=== PATIENT | male | born 1940 | race Caucasian/White ===

== ENCOUNTER 2022-09-16 06:16 | Day surgery (SDC) | payer MEDICARE ==
[2022-09-16] VITALS (11 sets, daily range): BP systolic 133–159; BP diastolic 55–90
[~2022-09-16] VITALS: Ht 177.8 cm; Wt 94.5 kg
[~2022-09-16 06:16] MED LIST: ASCO500C14 PO; ATEN50TA8 PO; BENA1TAB88 PO; CHOL100046 PO; CLOP-32 PO; FAMO20TA8 PO; RIVA20TA PO; zinc PO
[2022-09-16] MEDS ORDERED: normal saline 1000ml 1,000 ML IV PRN (06:40)
[2022-09-16] MEDS ORDERED: CLOP75TA34 PO (07:03)
[2022-09-16] MEDS ORDERED: BENA1TAB88 PO (07:24)
[2022-09-16 07:42] LABS: EOSINOPHILS # (AUTO) 0.2 X10'3 (0-0.9); MEAN CORPUSCULAR HEMOGLOBIN 31.9 PG (27.0-31.0); MONOCYTES # (AUTO) 0.4 X10'3 (0-0.9)
[2022-09-16 07:43] LABS: BASOPHILS % (AUTO) 0.2 % (0-1); EOSINOPHILS % (AUTO) 1.9 % (0-6); HEMATOCRIT 36.2 % (42.0-52.0); HEMOGLOBIN 12.3 g/dl (14.0-17.9); LYMPHOCYTES # (AUTO) 5.5 X10'3 (1.1-4.8); LYMPHOCYTES % (AUTO) 61.2 % (21-51); MEAN CORPUSCULAR VOLUME 93.9 FL (78-98); MONOCYTES % (AUTO) 4.9 % (2-12); NEUTROPHILS # (AUTO) 2.9 X10'3 (1.8-7.7); NEUTROPHILS % (AUTO) 31.8 % (42-75); PLATELET COUNT 207 X10'3 (140-440); RED BLOOD COUNT 3.86 X10'6 (4.70-6.10); RED CELL DISTRIBUTION WIDTH 14.2 % (11.5-14.5)
[2022-09-16 07:48] LABS: BLOOD UREA NITROGEN 28 MG/DL (7-18); BUN/CREATININE RATIO 25.5 (10.0-20.0); CHLORIDE 108 MMOL/L (99-107); GLUCOSE 95 MG/DL (70-104); POTASSIUM 3.8 MMOL/L (3.5-5.1); SODIUM 144 MMOL/L (135-145); eGFR 64 ML/MIN
[2022-09-16] MEDS ORDERED: clopidogrel 75mg tablet PO SCH (08:00)
[2022-09-16] MEDS ORDERED: rivaroxaban 20mg tablet PO SCH (08:00)
[2022-09-16 08:16] LABS: ALBUMIN 3.9 G/DL (3.4-5.0); ANION GAP 11 (8-16); CALCIUM 9.3 MG/DL (8.5-10.1); TOTAL CARBON DIOXIDE 25.1 MMOL/L (24-32)
[2022-09-16] MEDS ORDERED: diphenhydrAMINE 50 mg/ml inj ONE (08:16)
[2022-09-16] MEDS ORDERED: midazolam 1 mg/ML 2ml injection ONE ×3 (08:17→10:41)
[2022-09-16] MEDS ORDERED: LIDOcaine 1% 30ml preserv. free vial ONE (08:17)
[2022-09-16] MEDS ORDERED: fentaNYL/PF 50MCG/1 ML 2ML syringe ONE ×3 (08:17→10:42)
[2022-09-16] MEDS ORDERED: iohexol 300mg/ml 100ml inj. ONE ×2 (08:17→10:24)
[2022-09-16] MEDS ORDERED: heparin 1,000 UNITS/NS 500ml 500 ML ONE ×3 (08:17→11:31)
[2022-09-16] MEDS ORDERED: heparin 1,000unit/ml 10ml vial 10 ML ONE ×2 (08:35→10:34)
[2022-09-16] MEDS ORDERED: nitroGLYCERIN-Tridil 50MG/D5W 250 ML IV ONE (08:35)
[2022-09-16 08:44] LABS: PLATELET ESTIMATE NORMAL; TOTAL CELLS COUNTED 100
[2022-09-16 08:45] LABS: SMUDGE CELLS 1+
[2022-09-16] MEDS ORDERED: verapamil 2.5 mg/ml inj IV ONE (08:56)
[2022-09-16] MEDS ORDERED: normal saline 1000ml 1,000 ML IV SCH (12:35)
== END 2022-09-16 15:40 | disposition home or self-care (01) ==
LOC: SSTAY O 06:16
PROVIDERS: ATTEND Radiology Vascular & Interventional Radiology
DX: I70.222 Atherosclerosis of native arteries of extremities with rest pain, left leg (principal); Z88.8 Allergy status to other drugs, medicaments and biological substances; Z79.899 Other long term (current) drug therapy
CPT/HCPCS: 37228; 75625; 75710; 80048; 85025; 85347; 85610; 99152; 99153; C1725; C1760; C1769; C1894; J1200; J1644; J2250; J3010; J3490; J7030; J7040; Q9967; 85007; A4615; A4620

== ENCOUNTER 2023-02-05 06:59 | Day surgery (SDC) | payer MEDICARE ==
[~2023-02-05] VITALS: Ht 177.8 cm; Wt 94.4 kg
[2023-02-05] VITALS (9 sets, daily range): BP systolic 121–162; BP diastolic 47–97; PULSE 42–49; RESP 12–15; TEMP 98; O2SAT 97–99
[~2023-02-05 06:59] MED LIST changes: -ASCO500C14 PO; -CHOL100046 PO; -CLOP-32 PO; +CLOP75TA34 PO; -zinc PO
[2023-02-05] MEDS ORDERED: normal saline 1000ml 1,000 ML IV PRN (07:25)
[2023-02-05] MEDS ORDERED: Atenolol PO (07:29)
[2023-02-05 07:58] LABS: BASOPHILS % (AUTO) 0.2 % (0-1); EOSINOPHILS # (AUTO) 0.1 X10'3 (0-0.9); HEMATOCRIT 38.1 % (42.0-52.0); HEMOGLOBIN 12.8 g/dl (14.0-17.9); LYMPHOCYTES # (AUTO) 6.2 X10'3 (1.1-4.8); LYMPHOCYTES % (AUTO) 60.2 % (21-51); MEAN CORPUSCULAR HEMOGLOBIN 31.4 PG (27.0-31.0); MEAN CORPUSCULAR HGB CONC 33.5 g/dL (33.0-36.5); MEAN CORPUSCULAR VOLUME 93.9 FL (78-98); MEAN PLATELET VOLUME 8.1 FL (7.4-10.4); MONOCYTES # (AUTO) 0.4 X10'3 (0-0.9); MONOCYTES % (AUTO) 4.2 % (2-12); NEUTROPHILS # (AUTO) 3.5 X10'3 (1.8-7.7); NEUTROPHILS % (AUTO) 34.4 % (42-75); PLATELET COUNT 185 X10'3 (140-440); RED BLOOD COUNT 4.06 X10'6 (4.70-6.10); WHITE BLOOD COUNT 10.3 X10'3 (4.5-11.0)
[2023-02-05 08:09] LABS: INR 1.4 INR; PROTHROMBIN TIME 15.1 SECONDS (9.0-12.0)
[2023-02-05] MEDS ORDERED: iohexol 300mg/ml 100ml inj. ONE (08:09)
[2023-02-05] MEDS ORDERED: LIDOcaine 1% 30ml preserv. free vial ONE (08:09)
[2023-02-05] MEDS ORDERED: heparin 1,000 UNITS/NS 500ml 500 ML ONE (08:09)
[2023-02-05] MEDS ORDERED: midazolam 1 mg/ML 2ml injection ONE ×2 (08:09→10:44)
[2023-02-05] MEDS ORDERED: fentaNYL/PF 50MCG/1 ML 2ML syringe ONE ×2 (08:09→10:44)
[2023-02-05 08:22] LABS: ALBUMIN 3.7 G/DL (3.4-5.0); ANION GAP 10 (8-16); BLOOD UREA NITROGEN 25 MG/DL (7-18); BUN/CREATININE RATIO 23.6 (10.0-20.0); CALCIUM 9.4 MG/DL (8.5-10.1); CHLORIDE 109 MMOL/L (99-107); CREATININE 1.06 MG/DL (0.60-1.10); GLUCOSE 106 MG/DL (70-104); SODIUM 142 MMOL/L (135-145); TOTAL CARBON DIOXIDE 23.3 MMOL/L (24-32); eCRCL 55 ML/MIN; eGFR 67 ML/MIN
[2023-02-05] MEDS ORDERED: heparin 1,000unit/ml 10ml vial 10 ML ONE (10:46)
[2023-02-05 11:00] LABS: TOTAL CELLS COUNTED 100
[2023-02-05 11:01] LABS: PLATELET ESTIMATE NORMAL; SMUDGE CELLS 1+
[2023-02-05] MEDS ORDERED: normal saline 1000ml 1,000 ML IV SCH (12:15)
== END 2023-02-05 15:00 | disposition home or self-care (01) ==
LOC: SSTAY O 06:59
PROVIDERS: ATTEND Radiology Vascular & Interventional Radiology
DX: I70.222 Atherosclerosis of native arteries of extremities with rest pain, left leg (principal); I10 Essential (primary) hypertension; Z98.890 Other specified postprocedural states; Z79.899 Other long term (current) drug therapy; Z79.01 Long term (current) use of anticoagulants; Z86.718 Personal history of other venous thrombosis and embolism; Z88.8 Allergy status to other drugs, medicaments and biological substances
CPT/HCPCS: 36415; 37224; 37228; 75710; 80048; 85025; 85347; 85610; 99152; 99153; C1725; C1760; C1769; C2623; J1644; J2250; J3010; J3490; J7030; Q9967; 37232; 85007; A4620; A6213; A6258; A6449; C1894

== ENCOUNTER 2023-05-12 06:45 | Day surgery (SDC) | payer MEDICARE ==
[~2023-05-12] VITALS: Ht 177.8 cm; Wt 91.9 kg
[2023-05-12] VITALS (8 sets, daily range): BP systolic 100–151; BP diastolic 52–111; PULSE 58–73; RESP 12–16; TEMP 98; O2SAT 92–98
[~2023-05-12 06:45] MED LIST changes: -ATEN50TA8 PO; +Atenolol PO
[2023-05-12] MEDS ORDERED: RIVA10TA PO (07:11)
[2023-05-12 07:31] LABS: EOSINOPHILS # (AUTO) 0.2 X10'3 (0-0.9); LYMPHOCYTES # (AUTO) 6.2 X10'3 (1.1-4.8); MONOCYTES # (AUTO) 0.5 X10'3 (0-0.9); MONOCYTES % (AUTO) 4.4 % (2-12)
[2023-05-12 07:33] LABS: BASOPHILS % (AUTO) 0.2 % (0-1); EOSINOPHILS % (AUTO) 1.5 % (0-6); HEMATOCRIT 38.8 % (42.0-52.0); HEMOGLOBIN 13.4 g/dl (14.0-17.9); LYMPHOCYTES % (AUTO) 59.4 % (21-51); MEAN CORPUSCULAR HEMOGLOBIN 32.4 PG (27.0-31.0); MEAN CORPUSCULAR HGB CONC 34.5 g/dL (33.0-36.5); MEAN PLATELET VOLUME 7.8 FL (7.4-10.4); NEUTROPHILS # (AUTO) 3.6 X10'3 (1.8-7.7); NEUTROPHILS % (AUTO) 34.5 % (42-75); PLATELET COUNT 195 X10'3 (140-440); RED BLOOD COUNT 4.13 X10'6 (4.70-6.10); RED CELL DISTRIBUTION WIDTH 13.3 % (11.5-14.5); WHITE BLOOD COUNT 10.4 X10'3 (4.5-11.0)
[2023-05-12 07:44] LABS: APTT 27 SECONDS (22-32); INR 1.4 INR; PROTHROMBIN TIME 15.2 SECONDS (9.0-12.0)
[2023-05-12] MEDS ORDERED: heparin 1,000 UNITS/NS 500ml 500 ML ONE ×2 (08:08→10:07)
[2023-05-12] MEDS ORDERED: fentaNYL/PF 50MCG/1 ML 2ML syringe ONE ×2 (08:08→09:17)
[2023-05-12] MEDS ORDERED: iohexol 300mg/ml 100ml inj. ONE ×2 (08:08→10:31)
[2023-05-12] MEDS ORDERED: midazolam 1 mg/ML 2ml injection ONE ×2 (08:08→09:17)
[2023-05-12 08:18] LABS: ALANINE AMINOTRANSFERASE 26 U/L (12-78); ALBUMIN/GLOBULIN RATIO 1.2 (1.1-1.5); ALKALINE PHOSPHATASE 56 IU/L (46-116); ANION GAP 13 (8-16); ASPARTATE AMINO TRANSFERASE 20 U/L (10-37); BILIRUBIN,TOTAL 0.5 MG/DL (0.1-1.0); BLOOD UREA NITROGEN 26 MG/DL (7-18); BUN/CREATININE RATIO 23.6 (10.0-20.0); CALCIUM 9.6 MG/DL (8.5-10.1); CHLORIDE 107 MMOL/L (99-107); GLUCOSE 107 MG/DL (70-104); POTASSIUM 4.3 MMOL/L (3.5-5.1); SODIUM 144 MMOL/L (135-145); TOTAL CARBON DIOXIDE 24.1 MMOL/L (24-32); TOTAL PROTEIN 7.4 G/DL (6.4-8.2); eCRCL 53 ML/MIN; eGFR 64 ML/MIN
[2023-05-12 08:56] LABS: PLATELET ESTIMATE NORMAL; TOTAL CELLS COUNTED 100
[2023-05-12] MEDS ORDERED: heparin 1,000unit/ml 10ml vial 10 ML ONE ×2 (09:21→10:37)
[2023-05-12] MEDS ORDERED: hydrALAZINE 20mg/ml inj. IV ONE (11:19)
[2023-05-12] MEDS ORDERED: normal saline 1000ml 1,000 ML IV SCH (12:35)
== END 2023-05-12 15:30 | disposition home or self-care (01) ==
LOC: SSTAY O 06:45
PROVIDERS: ATTEND Radiology Vascular & Interventional Radiology
DX: I70.222 Atherosclerosis of native arteries of extremities with rest pain, left leg (principal); Z88.8 Allergy status to other drugs, medicaments and biological substances; Z79.899 Other long term (current) drug therapy; Z86.718 Personal history of other venous thrombosis and embolism; Z79.01 Long term (current) use of anticoagulants
CPT/HCPCS: 37224; 37228; 37232; 75710; 80053; 85025; 85347; 85610; 85730; 99152; 99153; C1725; C1760; J0360; J1644; J2250; J3010; J7030; Q9967; 85007; A6213; C1769; C1887; C1894